=== PATIENT | female | born 1970 | race Caucasian/White ===

== ENCOUNTER → 2016-08-31 | Outpatient (CLI) | payer MEDICAID | LOC: OD 11:16 | PROVIDERS: ATTEND Family Medicine | DX: M54.2 Cervicalgia (principal) | CPT/HCPCS: 72050 ==

== ENCOUNTER 2018-01-30 13:39 | Emergency (ER) | payer MEDICAID ==
[2018-01-30 13:46] VITALS: BP 126/68
[2018-01-30] MEDS ORDERED: ACETAMINOPHEN 325 MG TABLET PO ONE (14:28)
--- NOTE | 2018-01-30 14:47 | ER Document Report ---
ED Hand/Wrist Injury - General Chief Complaint: Wrist Injury Stated Complaint: WRIST PAIN Time Seen by Provider: 01/30/18 14:28 Mode of Arrival: Ambulatory Information source: Patient Notes: 47-year-old female presents to ED for complaint of right hand pain for several months. She states she fell landing on her wrist. She states she never went and got it seen. She states she was doing good until about a week ago when her hand started becoming more painful. TRAVEL OUTSIDE OF THE [place] IN LAST 30 DAYS: No - HPI Injury to: Wrist Onset: Other - Several months Where: Home Timing: Waxing and waning Quality of pain: Throbbing Severity: Moderate Pain Level: 3 Context: Fall - Follow-up of that several months ago it was doing good until couple weeks ago when it started hurting again - Related Data Allergies/Adverse Reactions: NSAIDS (Non-Steroidal Anti-Inflamma Adverse Reaction (Verified 01/30/18 13:44) Past Medical History - General Information source: Patient - Social History Smoking Status: Former Smoker Cigarette use (# per day): No Chew tobacco use (# tins/day): No Smoking Education Provided: No Frequency of alcohol use: Occasional Drug Abuse: None 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 [employer] Lives with: Family Family History: Reviewed & Not Pertinent Patient has suicidal ideation: No Patient has homicidal ideation: No - Past Medical History Cardiac Medical History: Reports: None Pulmonary Medical History: Reports: None EENT Medical History: Reports: None Neurological Medical History: Reports: None Endocrine Medical History: Reports: None Renal/ Medical History: Reports: Hx Ovarian Cysts Malignancy Medical History: Reports: None GI Medical History: Reports: Hx Gastroesophageal Reflux Disease Musculoskeletal Medical History: Reports Hx Musculoskeletal Trauma Skin Medical History: Reports None Psychiatric Medical History: Reports: None Traumatic Medical History: Reports: None Infectious Medical History: Reports: None Surgical Hx: Negative Past Surgical History: Reports: None - Immunizations Hx Diphtheria, Pertussis, Tetanus Vaccination: Yes Review of Systems - Review of Systems Constitutional: No symptoms reported EENT: No symptoms reported Cardiovascular: No symptoms reported Respiratory: No symptoms reported Gastrointestinal: No symptoms reported Genitourinary: No symptoms reported Female Genitourinary: No symptoms reported Musculoskeletal: Other Skin: No symptoms reported Hematologic/Lymphatic: No symptoms reported Neurological/Psychological: No symptoms reported -: Yes All other systems reviewed and negative Physical Exam - Vital signs Vitals: Temp Pulse Resp BP Pulse Ox 98.8 F 83 18 126/68 H 98 01/30/18 13:44 01/30/18 13:44 01/30/18 13:44 01/30/18 13:44 01/30/18 13:44 Interpretation: Normal - General General appearance: Appears well, Alert - HEENT Head: Normocephalic, Atraumatic Eyes: Normal Pupils: PERRL - Respiratory Respiratory status: No respiratory distress Chest status: Nontender Breath sounds: Normal Chest palpation: Normal - Cardiovascular Rhythm: Regular Heart sounds: Normal auscultation Murmur: No - Abdominal Inspection: Normal Distension: No distension Bowel sounds: Normal Tenderness: Nontender Organomegaly: No organomegaly - Back Back: Normal, Nontender - Extremities General upper extremity: Normal color, Normal temperature General lower extremity: Normal inspection, Nontender, Normal color, Normal ROM , Normal temperature, Normal weight bearing. No: Alejandra's sign Wrist: Tender, Limited ROM - Due to pain. No: Abrasion, Axial load of thumb pain, Deformity, Dislocation, Ecchymosis, Instability, Laceration, Navicular tenderness - Neurological Neuro grossly intact: Yes Cognition: Normal Orientation: AAOx4 [place] Coma Scale Eye Opening: Spontaneous [place] Coma Scale Verbal: Oriented Lucia Coma Scale Motor: Obeys Commands Cross[place] Coma Scale Total: 15 Speech: Normal Motor strength normal: LUE, RUE, LLE, RLE Sensory: Normal - Psychological Associated symptoms: Normal affect, Normal mood - Skin Skin Temperature: Warm Skin Moisture: Dry Skin Color: Normal Course - Vital Signs Vital signs: Temp Pulse Resp BP Pulse Ox 98.8 F 83 18 126/68 H 98 01/30/18 13:44 01/30/18 13:44 01/30/18 13:44 01/30/18 13:44 01/30/18 13:44 - Diagnostic Test Radiology reviewed: Image reviewed, Reports reviewed Procedures - Immobilization Left Wrist Time completed: 16:20 Immobilizer type: Crutches Performed by: PCT Post-Proc Neuro Vasc Exam: Normal Alignment checked and good: Yes Discharge - Discharge Clinical Impression: Pain in right wrist Condition: Stable Disposition: HOME, SELF-CARE Additional Instructions: SPRAIN: Your injury is a sprain. A sprain results from stretching or tearing of the ligaments, usually from a twisting injury. The ligaments will require time and protection in order to heal properly. Many sprains are quite disabling and should be taken seriously. The usual initial treatment of sprains is cold packs, elevation, and rest of the injured area. Your physician has assessed the seriousness of your ligament injury, and has outlined a treatment plan. Understand that this treatment may change, depending on how you progress. If a re-examination was recommended, it is important that you follow up as instructed. Call the doctor any time if there is severe pain, numbness, or loss of function in the injured area. SPLINT PRECAUTIONS: A splint has been placed. This will protect the area while healing begins. Your problem does NOT normally require a cast. It MUST, however, be held still! Keep the splint on ALL THE TIME until instructed to remove it by the doctor. As you begin to use the area, be careful. You shouldn't do anything which causes discomfort -- you may disturb the injury even with the splint in place. After the initial period of rest and elevation, if splint does not prevent pain when you move, come back. You may require placement of a different splint , or a cast. If there is unexpected severe pain, or numbness, discoloration, or swelling beyond the splint, you should return at once. If you feel that the splint has broken or become loose, come back. ICE & ELEVATION: Apply ice packs frequently against the painful area. Many different schedules are recommended, such as "20 minutes on, 20 minutes off" or "one hour ice, two hours rest." If you need to work, you may need to go longer between ice treatments. You should plan to have the area ice packed AT LEAST one- fourth of the time. The ice should be applied over the wrap, tape, or splint, or over a layer of cloth -- not directly against the skin. Some ice bags have a built-in cloth and can be put directly on the skin. Your injured part should be elevated as much as possible over the next 48 hours. Try to keep the injury above the level of the heart. Avoid use of the injured area. Elevation and rest will decrease the swelling. USE OF ICJJ-JTE-PDFIURE IBUPROFEN: Ibuprofen (Advil, Nuprin, Medipren, Motrin IB) is a medication for fever and pain control. In addition, it has anti- inflammatory effects which may be beneficial, especially in the treatment of injuries. It's best to take ibuprofen with food. Persons with ulcer disease or allergy to aspirin should notify their physician of this before taking ibuprofen. Ibuprofen can be given every four to six hours, for a total of four doses daily. Age Pain or fever dose Antiinflammatory dose 6-8 yr 200 mg (1 tab) 200 mg (1 tab) 9-11 yr 200 mg (1 tab) 200-400 mg (1-2 tab) 11-14 yr 200-400 mg (1-2 tab) 400 mg (2 tab) 15-adult 400 mg (2 tab) 600 mg (3 tab) FOLLOW-UP CARE: If you have been referred to a physician for follow-up care, call the physician s office for an appointment as you were instructed or within the next two days. If you experience worsening or a significant change in your symptoms, notify the physician immediately or return to the Emergency Department at any time for re-evaluation. Forms: Elevated Blood Pressure Referrals: LEWIS MCGINNIS DO [Primary Care Provider] - Follow up as needed REX LATIF MD [ACTIVE STAFF] - Follow up as needed
--- NOTE | 2018-01-30 14:58 | RADIOLOGY REPORT (SQ) ---
EXAM DESCRIPTION: HAND RIGHT 3 VIEWS COMPLETED DATE/TIME: 01/30/2018 2:50 pm REASON FOR STUDY: pain COMPARISON: None. EXAM PARAMETERS: NUMBER OF VIEWS: Three views. TECHNIQUE: AP, lateral and oblique radiographic images acquired of the right hand. LIMITATIONS: None. FINDINGS: MINERALIZATION: Normal. BONES: No acute fracture or dislocation. No worrisome bone lesions. JOINTS: No effusions. SOFT TISSUES: No soft tissue swelling. No foreign body. OTHER: No other significant finding. IMPRESSION: NEGATIVE STUDY OF THE RIGHT HAND. NO RADIOGRAPHIC EVIDENCE OF ACUTE INJURY. TECHNICAL DOCUMENTATION: JOB ID: [id number] [employer]- All Rights Reserved Reading location - IP/workstation name: [email or web address]
--- NOTE | 2018-01-30 14:59 | RADIOLOGY REPORT (SQ) ---
EXAM DESCRIPTION: WRIST RIGHT 3 VIEWS COMPLETED DATE/TIME: 01/30/2018 2:50 pm REASON FOR STUDY: pain COMPARISON: None. NUMBER OF VIEWS: Three views. TECHNIQUE: AP, lateral, and oblique radiographic images acquired of the right wrist. LIMITATIONS: None. FINDINGS: MINERALIZATION: Normal. BONES: No acute fracture or dislocation. No worrisome bone lesions. Normal alignment. SOFT TISSUES: Mild soft tissue swelling overlying the dorsum of the wrist. No subcutaneous gas. No radiopaque foreign body. OTHER: No other significant finding. IMPRESSION: Mild soft tissue swelling overlying the dorsum of the wrist. No acute fracture or dislo cation. TECHNICAL DOCUMENTATION: JOB ID: [id number] [employer]- All Rights Reserved Reading location - IP/workstation name: [email or web address]
== END 2018-01-30 16:26 | disposition home or self-care (01) ==
LOC: ER 13:39 → EEVIPCON 13:39 → ER 16:26
DX: M25.531 Pain in right wrist (principal)
CPT/HCPCS: 99283; 73130; 73110; L3908

== ENCOUNTER 2018-11-06 12:12 | Emergency (ER) | payer MEDICAID ==
--- NOTE | 2018-11-06 12:54 | ER Document Report ---
ED Medical Screen (RME) - General Chief Complaint: Vaginal Bleeding Stated Complaint: VAGINAL BLEEDING Time Seen by Provider: 11/06/18 12:50 Primary Care Provider: LEWIS MCGINNIS DO [Primary Care Provider] - Follow up as needed TRAVEL OUTSIDE OF THE [place] IN LAST 30 DAYS: No - HPI Notes: 11/06/18 12:53 Patient is a 48-year-old female with no significant past medical history aside from sciatic pain who presents complaining of heavy vaginal bleeding that began a day and a half ago. Patient states that she is going through a pad per hour. Patient states that she is not currently gone through any menopause and has been having monthly cycles otherwise. She is eating and drinking without difficulty. She is urinating normally. She is having normal bowel movements. No other vaginal odor or discharge. She has no concern of STD or STI. No associated pain. Denies BRIDGES, fever, neck pain, URI, CP, SOB, Abd pain, or rash. I have treated and performed a rapid initial assessment of this patient. A comprehensive ED assessment and evaluation of the patient, analysis of test results and completion of medical decision making process will be conducted by additional ED providers. PHYSICAL EXAMINATION: GENERAL: Well-appearing, well-nourished and in no acute distress. A&Ox4. Answers questions appropriately. LUNGS: Breath sounds clear to auscultation bilaterally and equal. No wheezes rales or rhonchi. HEART: Regular rate and rhythm without murmurs, rubs, gallops. - Related Data Allergies/Adverse Reactions: NSAIDS (Non-Steroidal Anti-Inflamma Adverse Reaction (Verified 11/06/18 12:13) Past Medical History Renal/ Medical History: Reports: Hx Ovarian Cysts. Denies: Hx Peritoneal Dialysis GI Medical History: Reports: Hx Gastroesophageal Reflux Disease Musculoskeltal Medical History: Reports Hx Musculoskeletal Trauma - Immunizations Hx Diphtheria, Pertussis, Tetanus Vaccination: Yes Physical Exam - Vital signs Vitals: Temp Pulse Resp BP Pulse Ox 98.4 F 82 18 142/88 H 100 11/06/18 12:21 11/06/18 12:21 11/06/18 12:21 11/06/18 12:21 11/06/18 12:21 Course - Vital Signs Vital signs: Temp Pulse Resp BP Pulse Ox 98.4 F 82 18 142/88 H 100 11/06/18 12:21 11/06/18 12:21 11/06/18 12:21 11/06/18 12:21 11/06/18 12:21 Doctor's Discharge - Discharge Referrals: LEWIS MCGINNIS DO [Primary Care Provider] - Follow up as needed
[2018-11-06 13:58] LABS: ABSOLUTE BASOPHILS # (AUTO) 0.1 10^3/uL (0.0-0.2); ABSOLUTE EOSINOPHILS # (AUTO) 0.1 10^3/uL (0.0-0.6); ABSOLUTE LYMPHOCYTES (AUTO) 1.5 10^3/uL (0.5-4.7); ABSOLUTE MONOCYTES (AUTO) 0.7 10^3/uL (0.1-1.4); ABSOLUTE NEUT (AUTO) 7.8 10^3/uL (1.7-8.2); BASOPHILS % (AUTO) 0.7 % (0-2); EOSINOPHILS % (AUTO) 1.2 % (0-6); HEMATOCRIT 27.6 % (36.0-47.0); LYMPHOCYTES % (AUTO) 14.9 % (13-45); MEAN CORPUSCULAR HEMOGLOBIN 17.4 pg (27.0-33.4); MEAN CORPUSCULAR HGB CONC 28.9 g/dL (32.0-36.0); MONOCYTES % (AUTO) 6.7 % (3-13); PLATELET COUNT 257 10^3/uL (150-450); RED BLOOD COUNT 4.61 10^6/uL (3.72-5.28); RED CELL DISTRIBUTION WIDTH 20.3 % (11.5-14.0); SEGMENTED NEUTROPHILS % (AUTO) 76.5 % (42-78); TOTAL CELLS COUNTED % (AUTO) 100 %; WHITE BLOOD COUNT 10.1 10^3/uL (4.0-10.5)
[2018-11-06 14:15] LABS: MEAN CORPUSCULAR VOLUME 60 fl (80-97)
[2018-11-06 14:23] LABS: ANISOCYTOSIS 2+; HYPOCHROMASIA 3+; OVALOCYTES 1+; PLATELET COMMENT ADEQUATE; POIKILOCYTOSIS 1+; TEAR DROP CELLS SLIGHT
[2018-11-06] MEDS ORDERED: NORMAL SALINE 1000 ML 1,000 ML IV ONE (14:28)
--- NOTE | 2018-11-06 14:38 | RADIOLOGY REPORT (SQ) ---
EXAM DESCRIPTION: U/S NON OB PEL TV W/DOPPLER COMPLETED DATE/TIME: 11/06/2018 2:19 pm REASON FOR STUDY: heavy bleeding COMPARISON: 04/22/2007 TECHNIQUE: Dynamic and static grayscale images acquired of the pelvis via transvaginal approach and recorded on PACS. Additional selected color Doppler and spectral images recorded. LIMITATIONS: Body habitus. FINDINGS: UTERUS: There is a ill-defined mass of the posterior uterine body, likely with a large sub mucosal component, measuring 6.1 cm. ENDOMETRIAL STRIPE: No focal or generalized thickening. No masses. CERVIX: No nabothian cysts. RIGHT OVARY AND DOPPLER: Ovary not visualized. LEFT OVARY AND DOPPLER: Ovary not visualized. FREE FLUID: None noted. OTHER: No other significant finding. MEASUREMENTS: UTERUS: 11.5 x 7.9 x 8.3 cm ENDOMETRIAL STRIPE: 2 mm RIGHT OVARY: Not visualized. LEFT OVARY: Not visualized. IMPRESSION: 1. There is an ill-defined mass of the posterior uterine body, likely a fibroid with a l arge submucosal component, measuring 6.1 cm. No ultrasound abnormality of the endometrial stripe pro per. 2. The bilateral ovaries are nonvisualized. TECHNICAL DOCUMENTATION: JOB ID: [id number] [employer]- All Rights Reserved Rev Reading location - IP/workstation name: [email or web address]
--- NOTE | 2018-11-06 14:39 | ER Document Report ---
ED GI/ - General Chief Complaint: Vaginal Bleeding Stated Complaint: VAGINAL BLEEDING Time Seen by Provider: 11/06/18 12:50 Primary Care Provider: LEWIS MCGINNIS DO [Primary Care Provider] - Follow up as needed Mode of Arrival: Ambulatory Information source: Patient TRAVEL OUTSIDE OF THE [place] IN LAST 30 DAYS: No - HPI Patient complains to provider of: Vaginal bleeding Notes: 11/06/18 14:37 Patient here with complaints of vaginal bleeding. The patient states that she started taking the medication for sciatica few days ago and she thinks that this is thrown her cycle off she started having extremely heavy bleeding 2 days ago. States it seems to have improved somewhat today. She denies any pain. No fever. No chest pain or shortness of breath. No syncope. She states she does have a history of anemia, but she is not sure what her normal hemoglobin is. She does have a history of fibroids in her uterus. She denies any vaginal discharge. No fever. She denies any concerns for sexually transmitted infections. She denies any unilateral numbness, tingling, weakness. No rash. No other complaints at this time. She states that yesterday and the day before she was changing her pad every 2-3 hours, today it seems to be better. 11/06/18 14:38 - Related Data Allergies/Adverse Reactions: NSAIDS (Non-Steroidal Anti-Inflamma Adverse Reaction (Verified 11/06/18 12:13) Past Medical History - Social History Smoking Status: Never Smoker Chew tobacco use (# tins/day): No Frequency of alcohol use: None Drug Abuse: None Family History: Reviewed & Not Pertinent Patient has suicidal ideation: No Patient has homicidal ideation: No Renal/ Medical History: Reports: Hx Ovarian Cysts. Denies: Hx Peritoneal Dialysis GI Medical History: Reports: Hx Gastroesophageal Reflux Disease Musculoskeletal Medical History: Reports Hx Musculoskeletal Trauma Past Surgical History: Reports: Hx Gynecologic Surgery - Immunizations Hx Diphtheria, Pertussis, Tetanus Vaccination: Yes Review of Systems - Review of Systems -: Yes All other systems reviewed and negative Physical Exam - Vital signs Vitals: Temp Pulse Resp BP Pulse Ox 98.4 F 82 18 142/88 H 100 11/06/18 12:21 11/06/18 12:21 11/06/18 12:21 11/06/18 12:21 11/06/18 12:21 - Notes Notes: GENERAL: alert, cooperative, nontoxic, no distress. HEAD: normocephalic, atraumatic EYES: conjunctiva pink without discharge, no external redness or swelling. EARS: no external swelling, no external redness NOSE: atraumatic, no external swelling MOUTH/THROAT: mucous membranes moist and pink, posterior pharynx without erythema, swelling, exudate. No trismus or drooling. NECK: soft, supple, full range of motion, no meningismus. CHEST: no distress, lungs clear and equal throughout. No wheezing, rales, rhonchi. CARDIAC: regular rate and rhythm, no murmur, normal capillary refill, normal pulses. No peripheral edema noted. ABDOMEN: Soft, nontender. No rebound tenderness or guarding. No obvious mass. Obese abdomen. BACK: full range of motion, no CVA tenderness. EXTREMITIES: full range of motion of all extremities. No redness, no swelling. NEURO: alert and oriented x 3, no focal deficits, full range of motion of all extremities. PYSCH: appropriate mood, affect. Patient is cooperative. SKIN: pink, warm, dry, no rash. : Female staff mine warfare officer at the bedside. No external lesions. Cervix closed. Small amount of blood within the vaginal vault. No cervical motion tenderness, no adnexal tenderness or masses. Course - Re-evaluation Re-evalutation: 11/06/18 16:13 Patient is nontoxic-appearing with stable vitals. Patient here with complaints of heavy vaginal bleeding for the last few days. No pain. No syncope. No chest pain or shortness of breath. On exam she has no tenderness. She is a little bit of blood in her vaginal vault. She states that her bleeding does se em to have improved. Hemoglobin is 8, the patient states that she is normally anemic but cannot remember exactly what her hemoglobin typically is. She does not have any symptoms of significant anemia. Ultrasound shows a large uterine fibroid which she has a history of. Urinalysis shows signs of UTI. Patient will be discharged home with a prescription for Macrobid and instructions to follow-up with her [facility] at the next available appointment for further evaluation. Follow-up sooner for worsening bleeding, high fever, severe pain, persistent vomiting, syncope, or for any further concerns. The patient's emergency department workup and current diagnosis were explained to the patient and or family. Follow-up instructions were provided. Medications if prescribed were discussed. Instructions for when to return to the emergency department including specific worrisome symptoms were discussed with the patient and/or family. - Vital Signs Vital signs: Temp Pulse Resp BP Pulse Ox 98.4 F 82 18 142/88 H 100 11/06/18 12:21 11/06/18 12:21 11/06/18 12:21 11/06/18 12:21 11/06/18 12:21 - Laboratory Result Diagrams: 11/06/18 13:07 Laboratory results interpreted by me: 11/06/18 11/06/18 13:07 15:40 Hgb 8.0 L Hct 27.6 L MCV 60 L MCH 17.4 L MCHC 28.9 L RDW 20.3 H Urine Protein 100 H Urine Blood LARGE H Ur Leukocyte Esterase MODERATE H - Diagnostic Test Radiology reviewed: Image reviewed, Reports reviewed - Large uterine fibroid Discharge - Discharge Clinical Impression: Uterine fibroid Qualifiers: Uterine leiomyoma location: unspecified location Qualified Code(s): D25.9 - Leiomyoma of uterus, unspecified Anemia Qualifiers: Anemia type: unspecified type Qualified Code(s): D64.9 - Anemia, unspecified UTI (urinary tract infection) Qualifiers: Urinary tract infection type: acute cystitis Hematuria presence: with hematuria Qualified Code(s): N30.01 - Acute cystitis with hematuria Condition: Stable Disposition: HOME, SELF-CARE Instructions: Urinary Tract Infection ([facility]), Nitrofurantoin ([facility]), Vaginal Bleeding ([facility]) Additional Instructions: Take medication as prescribed. Follow-up with your [facility] [facility] at the next available appointment. Have your hemoglobin rechecked, today it was 8. Follow-up for worsening bleeding, severe pain, persistent vomiting, passing out, chest pain or shortness of breath, or for any further concerns. Prescriptions: Nitrofurantoin/Nitrofuran Mac [Macrobid 100 mg Capsule] 1 tab PO BID #20 capsule Forms: Elevated Blood Pressure, Smoking Cessation Education Referrals: LEWIS MCGINNIS DO [Primary Care Provider] - Follow up as needed
[2018-11-06 15:57] LABS: APPEARANCE,URINE CLOUDY; BILIRUBIN,URINE NEGATIVE (NEGATIVE); GLUCOSE, URINE NEGATIVE (NEGATIVE); KETONES,URINE NEGATIVE (NEGATIVE); LEUKOCYTE ESTERASE,URINE MODERATE (NEGATIVE); NITRITE,URINE NEGATIVE (NEGATIVE); PROTEIN,URINE 100 mg/dL (NEGATIVE); URINE SPECIFIC GRAVITY 1.023; UROBILINOGEN,URINE NEGATIVE mg/dL (<2.0)
[2018-11-06 15:58] LABS: COLOR,URINE RED
[2018-11-06 16:30] VITALS: BP 145/79
[2018-11-08 11:49] LABS: PATH REVIEW PATHOLOGIST REVIEWED
== END 2018-11-06 16:31 | disposition home or self-care (01) ==
LOC: ER 12:12
DX: D25.9 Leiomyoma of uterus, unspecified (principal); D64.9 Anemia, unspecified; N30.01 Acute cystitis with hematuria
CPT/HCPCS: 99284; 96360; 36415; 85025; 81025; 81001; 76830; 93976; J7030

== ENCOUNTER → 2020-03-01 | Outpatient (CLI) | payer MEDICAID ==
--- NOTE | 2020-03-01 17:36 | RADIOLOGY REPORT (SQ) ---
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 EXAM PARAMETERS: NUMBER OF VIEWS: two views TECHNIQUE: Digital Frontal and Lateral radiographic views of the chest acquired. RADIATION DOSE: NA LIMITATIONS: none FINDINGS: LUNGS AND PLEURA: No opacities, masses or pneumothorax. No pleural effusion. MEDIASTINUM AND HILAR STRUCTURES: No masses or contour abnormalities. HEART AND VASCULAR STRUCTURES: Heart normal size. No evidence for failure. BONES: No acute findings. HARDWARE: None in the chest. OTHER: No other significant finding. IMPRESSION: NO SIGNIFICANT RADIOGRAPHIC FINDING IN THE CHEST. TECHNICAL DOCUMENTATION: JOB ID: [id number] 2010 [employer]- All Rights Reserved Reading location - IP/workstation name: [email or web address]
--- NOTE | 2020-03-01 17:37 | RADIOLOGY REPORT (SQ) ---
EXAM DESCRIPTION: LUMBAR SPINE COMPLETE IMAGES COMPLETED DATE/TIME: 03/01/2020 5:17 pm REASON FOR STUDY: CHRONIC LEFT SIDED LOW BACK PAIN WITH LEFT SIDED SCIATICA M54.42 LUMBAGO WITH SCI ATICA, LEFT SIDE COMPARISON: None. NUMBER OF VIEWS: Five views including obliques. TECHNIQUE: AP, lateral, oblique, and sacral radiographic images acquired of the lumbar spine. LIMITATIONS: None. FINDINGS: MINERALIZATION: Normal. SEGMENTATION: Normal. No transitional anatomy. ALIGNMENT: Mild anterolisthesis of L4 on L5. VERTEBRAE: Maintained height. No fracture or worrisome bone lesion. DISCS: Mild narrowing of the L4-5 disc space. POSTERIOR ELEMENTS: No pars defects. hypertrophic facet changes from L4-S1. HARDWARE: None in the spine. PARASPINAL SOFT TISSUES: Normal. PELVIS: Intact as visualized. No fractures or worrisome bone lesions. SI joints intact. OTHER: No other significant finding. IMPRESSION: Mild anterolisthesis of L4 on L5. Degenerative disc disease. Facet arthropathy. TECHNICAL DOCUMENTATION: JOB ID: [id number] 2010 [employer]- All Rights Reserved Reading location - IP/workstation name: [email or web address]
== END ==
LOC: OD 16:49
PROVIDERS: ATTEND Nurse Practitioner Family
DX: M51.16 Intervertebral disc disorders with radiculopathy, lumbar region (principal)
CPT/HCPCS: 71046; 72110

== ENCOUNTER → 2020-03-01 | Outpatient (CLI) | payer MEDICAID ==
--- NOTE | 2020-03-01 21:04 | EKG REPORT ---
SEVERITY:- OTHERWISE NORMAL ECG - SINUS RHYTHM BORDERLINE LEFT AXIS DEVIATION : Confirmed by: Noreen Solorzano 01-Mar-2020 21:03:56
== END ==
LOC: OD 16:44
PROVIDERS: ATTEND Nurse Practitioner Family
DX: R00.2 Palpitations (principal); R05 Cough
CPT/HCPCS: 93005; 93010

== ENCOUNTER 2020-06-15 10:42 | Emergency (ER) | payer MEDICAID ==
[2020-06-15] MEDS ORDERED: ACETAMINOPHEN 325 MG TABLET PO ONE (12:42)
--- NOTE | 2020-06-15 12:43 | ER Document Report ---
ED Medical Screen (RME) - General Chief Complaint: Flank Pain Stated Complaint: FLANK PAIN Time Seen by Provider: 06/15/20 12:39 Primary Care Provider: CARMEL SOTO NP [Primary Care Provider] - Follow up as needed Notes: Patient presents complaining of right flank pain for the past 2 weeks. Patient states initially she had bilateral flank pain but she took a leftover prescription of antibiotics and now she only has right flank tenderness at this time. Patient does report some mild diarrhea. Patient denies any fever. Patient only reports a history of GERD. I have greeted and performed a rapid initial assessment of this patient. A comprehensive ED assessment and evaluation of the patient, analysis of test results and completion of the medical decision making process will be conducted by additional ED providers. TRAVEL OUTSIDE OF THE [place] IN LAST 30 DAYS: No - Related Data Allergies/Adverse Reactions: NSAIDS (Non-Steroidal Anti-Inflamma Adverse Reaction (Verified 11/06/18 12:13) Past Medical History Renal/ Medical History: Reports: Hx Ovarian Cysts. Denies: Hx Peritoneal Dialysis GI Medical History: Reports: Hx Gastroesophageal Reflux Disease Musculoskeltal Medical History: Reports Hx Musculoskeletal Trauma Past Surgical History: Reports: Hx Gynecologic Surgery - Immunizations Hx Diphtheria, Pertussis, Tetanus Vaccination: Yes Physical Exam - Vital signs Vitals: Temp Pulse Resp BP Pulse Ox 98.1 F 82 18 128/54 H 98 06/15/20 10:48 06/15/20 10:48 06/15/20 10:48 06/15/20 10:48 06/15/20 10:48 - Back Back: CVA tenderness - Right Course - Vital Signs Vital signs: Temp Pulse Resp BP Pulse Ox 98.1 F 82 18 128/54 H 98 06/15/20 10:48 06/15/20 10:48 06/15/20 10:48 06/15/20 10:48 06/15/20 10:48 Doctor's Discharge - Discharge Referrals: CARMEL SOTO NP [Primary Care Provider] - Follow up as needed
[2020-06-15 13:36] LABS: ABSOLUTE BASOPHILS # (AUTO) 0.1 10^3/uL (0.0-0.2); ABSOLUTE EOSINOPHILS # (AUTO) 0.2 10^3/uL (0.0-0.6); ABSOLUTE LYMPHOCYTES (AUTO) 2.1 10^3/uL (0.5-4.7); ABSOLUTE MONOCYTES (AUTO) 0.6 10^3/uL (0.1-1.4); ABSOLUTE NEUT (AUTO) 6.3 10^3/uL (1.7-8.2); BASOPHILS % (AUTO) 1.1 % (0-2); HEMATOCRIT 32.9 % (36.0-47.0); HEMOGLOBIN 9.9 g/dL (12.0-15.5); LYMPHOCYTES % (AUTO) 22.3 % (13-45); MEAN CORPUSCULAR HEMOGLOBIN 19.8 pg (27.0-33.4); MEAN CORPUSCULAR HGB CONC 30.2 g/dL (32.0-36.0); MEAN CORPUSCULAR VOLUME 65 fl (80-97); MONOCYTES % (AUTO) 6.8 % (3-13); PLATELET COUNT 240 10^3/uL (150-450); RED BLOOD COUNT 5.03 10^6/uL (3.72-5.28); RED CELL DISTRIBUTION WIDTH 19.2 % (11.5-14.0); SEGMENTED NEUTROPHILS % (AUTO) 67.8 % (42-78); TOTAL CELLS COUNTED % (AUTO) 100 %; WHITE BLOOD COUNT 9.2 10^3/uL (4.0-10.5)
[2020-06-15 13:38] LABS: APPEARANCE,URINE CLOUDY; BILIRUBIN,URINE SMALL (NEGATIVE); COLOR,URINE YELLOW; GLUCOSE, URINE NEGATIVE (NEGATIVE); KETONES,URINE NEGATIVE (NEGATIVE); LEUKOCYTE ESTERASE,URINE LARGE (NEGATIVE); NITRITE,URINE NEGATIVE (NEGATIVE); PROTEIN,URINE 100 mg/dL (NEGATIVE); URINE SPECIFIC GRAVITY 1.032; UROBILINOGEN,URINE NEGATIVE mg/dL (<2.0)
[2020-06-15 13:57] LABS: ALKALINE PHOSPHATASE 136 U/L (38-126); ASPARTATE AMINO TRANSFERASE 69 U/L (14-36); BILIRUBIN,DIRECT 0.3 mg/dL (0.0-0.4); BILIRUBIN,TOTAL 0.5 mg/dL (0.2-1.3); BLOOD UREA NITROGEN 17 mg/dL (7-20); CALCIUM 9.4 mg/dL (8.4-10.2); CARBON DIOXIDE 32 mmol/L (22-30); CHLORIDE 104 mmol/L (98-107); GLUCOSE 96 mg/dL (75-110); POTASSIUM 4.7 mmol/L (3.6-5.0); TOTAL PROTEIN 7.1 g/dL (6.3-8.2)
[2020-06-15 13:59] LABS: ANION GAP 4 (5-19)
--- NOTE | 2020-06-15 16:45 | ER Document Report ---
ED GI/ - General Chief Complaint: Low Back Pain Stated Complaint: FLANK PAIN Time Seen by Provider: 06/15/20 12:39 Primary Care Provider: CARMEL WORTHY NP [NURSE PRACTITIONER] - Follow up as needed Mode of Arrival: Ambulatory Information source: Patient Notes: 06/15/20 14:24 - [facility] [id number] : 1970 Patient Age: 50 pt reports she fell a couple of weeks ago out of the shower. states she was seen by chiropractor. states increase in pain. c/o of pain to the right lower back. denies urinary symptoms. denies n/v. states intermittent diarrhea. states she has had for a long time depending on what she eats. states some nausea with menses. pt is alert and oriented. resp are even and unlabored. no distress noted at this time. reports she does have sciatic. states she has been given polo pentin. ED Medical Screen ([facility] chart) - General Chief Complaint: Flank Pain Stated Complaint: FLANK PAIN Time Seen by Provider: 06/15/20 12:39 Primary Care Provider: CARMEL WORTHY NP [Primary Care Provider] - Follow up as needed Notes: Patient presents complaining of right flank pain for the past 2 weeks. Patient states initially she had bilateral flank pain but she took a leftover prescription of antibiotics and now she only has right flank tenderness at this time. Patient does report some mild diarrhea. Patient denies any fever. Patient only reports a history of GERD. MY NOTES 50-year-old white female arrives with chief complaint of falling out of shower a couple weeks ago and was seen by chiropractor. I see from old electronic records that she has an feb 2020 Dr. Worthy saw this patient for lumbago with left-sided sciatica and April 2020 Zahraa Jay saw this patient for spondylolisthesis. Patient reports increase in pain on the right side and denies any urinary symptoms. She does say she has some occasional diarrhea. She admits to some nausea occasionally. She has been taking gabapentin for her symptoms. Today she was seen by [facility] as per above notes. The labs that were taken reveal a 9.9 hemoglobin and a 65 MCV. I see in October 2018 she had vaginal bleeding history. No prior history of pancreatitis on medical records. Urine test analysis today reports large UTI. Patient works at [place] [employer] [place] and is supposed to work tomorrow. I will write her for 3 days off work to encourage fluids and medications. She also reports she fell out of the shower bath 2 weeks ago landing on her right CVA area. She was x-rayed by her PMD and these were negative. She has had a history of kidney stones. TRAVEL OUTSIDE OF THE [place] IN LAST 30 DAYS: No - HPI Patient complains to provider of: Flank pain Onset: Last week Timing/Duration: Persistent, Worse. denies: Intermittent, Better, Gone Quality of pain: Achy. denies: Burning, Cramping, Fullness, Pressure, Sharp, Stabbing, Throbbing Severity at maximum: Moderate Severity in ED: Moderate Pain Level: 2 Context: Recent trauma. denies: Bad food, Lifting, Location: Right flank - Related Data Allergies/Adverse Reactions: NSAIDS (Non-Steroidal Anti-Inflamma Adverse Reaction (Verified 06/15/20 14:23) Home Medications: gabapentin. methocarbinol. gerd. zyrtec Past Medical History - General Information source: Patient - Social History Smoking Status: Never Smoker Cigarette use (# per day): No Chew tobacco use (# tins/day): No Smoking Education Provided: No Frequency of alcohol use: None Drug Abuse: Marijuana Family History: Reviewed & Not Pertinent Patient has suicidal ideation: No Patient has homicidal ideation: No Renal/ Medical History: Reports: Hx Ovarian Cysts. Denies: Hx Peritoneal Dialysis GI Medical History: Reports: Hx Gastroesophageal Reflux Disease Musculoskeletal Medical History: Reports Hx Musculoskeletal Trauma Past Surgical History: Reports: Hx Gynecologic Surgery - Immunizations Hx Diphtheria, Pertussis, Tetanus Vaccination: Yes Review of Systems - Review of Systems Constitutional: See HPI EENT: No symptoms reported Cardiovascular: No symptoms reported Respiratory: No symptoms reported Gastrointestinal: No symptoms reported Genitourinary: No symptoms reported Female Genitourinary: No symptoms reported Musculoskeletal: See HPI, Back pain - Right CVA pain on range of motion percussion Skin: No symptoms reported Hematologic/Lymphatic: No symptoms reported Neurological/Psychological: No symptoms reported Physical Exam - Vital signs Vitals: Temp Pulse Resp BP Pulse Ox 98.1 F 82 18 128/54 H 98 06/15/20 10:48 06/15/20 10:48 06/15/20 10:48 06/15/20 10:48 06/15/20 10:48 Interpretation: Normal - General General appearance: Appears well, Alert - HEENT Head: Normocephalic, Atraumatic Eyes: Normal Pupils: PERRL - Respiratory Respiratory status: No respiratory distress Chest status: Nontender Breath sounds: Normal Chest palpation: Normal - Cardiovascular Rhythm: Regular Heart sounds: Normal auscultation Murmur: No - Abdominal Inspection: Normal Distension: No distension Bowel sounds: Normal Tenderness: Nontender Organomegaly: No organomegaly - Rectal Hemorrhoids: Other - Deferred - Genitourinary Bimanuel exam: Other - Deferred - Back Back: Normal, Tender, CVA tenderness - Right CVA tenderness on percussion range of motion - Extremities General upper extremity: Normal inspection, Nontender, Normal color, Normal ROM, Normal temperature General lower extremity: Normal inspection, Nontender, Normal color, Normal ROM, Normal temperature, Normal weight bearing. No: Alejandra's sign - Neurological Neuro grossly intact: Yes Cognition: Normal Orientation: AAOx4 Schlater Coma Scale Eye Opening: Spontaneous Lucia Coma Scale Verbal: Oriented Schlater Coma Scale Motor: Obeys Commands Lucia Coma Scale Total: 15 Speech: Normal Motor strength normal: LUE, RUE, LLE, RLE Sensory: Normal - Psychological Associated symptoms: Normal affect, Normal mood - Skin Skin Temperature: Warm Skin Moisture: Dry Skin Color: Normal Course - Vital Signs Vital signs: Temp Pulse Resp BP Pulse Ox 98.2 F 72 16 144/69 H 100 06/15/20 14:22 06/15/20 14:22 06/15/20 14:22 06/15/20 14:22 06/15/20 14:22 - Laboratory Results Result Diagrams: 06/15/20 13:06 06/15/20 13:06 Laboratory Results Interpreted: 06/15/20 06/15/20 06/15/20 13:06 13:06 13:06 Hgb 9.9 L Hct 32.9 L MCV 65 L MCH 19.8 L MCHC 30.2 L RDW 19.2 H Carbon Dioxide 32 H Anion Gap 4 L AST 69 H ALT 59 H Alkaline Phosphatase 136 H Lipase 597.7 H Urine Protein 100 H Urine Bilirubin SMALL H Ur Leukocyte Esterase LARGE H Critical Laboratory Results Reviewed: Yes Attending or Supervising Physician who Reviewed Labs: ROSALVA MURO JR - Radiology Results Critical Radiology Results Reviewed: No Critical Results Attending or Supervising Physician who Reviewed Radiology: Jay wolf Discharge - Discharge Clinical Impression: Hemoglobin low Anemia Qualifiers: Anemia type: unspecified type Qualified Code(s): D64.9 - Anemia, unspecified Pancreatitis Qualifiers: Chronicity: acute Pancreatitis type: unspecified pancreatitis type Acute pancreatitis complication: unspecified Qualified Code(s): K85.90 - Acute pancreatitis without necrosis or infection, unspecified UTI (urinary tract infection) Qualifiers: Urinary tract infection type: acute cystitis Hematuria presence: without hematuria Qualified Code(s): N30.00 - Acute cystitis without hematuria Condition: Stable Disposition: HOME, SELF-CARE Instructions: Urinary Tract Infection ([facility]) Additional Instructions: Follow-up with personal doctor this week off work as directed. You also have blood test that is indicative of mild pancreatitis. Sometimes this indicates injury from drinking and sometimes from stones Prescriptions: Tramadol HCl [Ultram 50 mg Tablet] 50 mg PO Q4HP PRN #12 tab PRN Reason: Ciprofloxacin HCl [Cipro 500 mg Tablet] 500 mg PO BID #20 tablet Forms: Return to Work Referrals: CARMEL WORTHY, [employer] MACHINE SET UP OPERATOR [NURSE PRACTITIONER] - Follow up as needed
[2020-06-15] MEDS ORDERED: TRAMADOL HCL 50 MG TABLET PO ONE (17:09)
[2020-06-15] MEDS ORDERED: CEFTRIAXONE INJ 1000 MG VIAL IM ONE (17:09)
[2020-06-15] MEDS ORDERED: LIDOCAINE 2% INJ (20 MG/ML) 20 ML MDV ONE (17:17)
[2020-06-15] MEDS ORDERED: LIDOCAINE 1% INJ-PF (10 MG/ML) 30 ML SDV ONE (17:18)
[2020-06-15 17:54] VITALS: BP 155/97
== END 2020-06-15 17:54 | disposition home or self-care (01) ==
LOC: ER 10:42
DX: N30.00 Acute cystitis without hematuria (principal); D64.9 Anemia, unspecified; K85.90 Acute pancreatitis without necrosis or infection, unspecified; M54.5 Low back pain; Z88.8 Allergy status to other drugs, medicaments and biological substances
CPT/HCPCS: 99284; 96372; 36415; 87086; 83690; 84703; 85025; 80053; 81001; J3490 ×2; J0696

== ENCOUNTER → 2020-06-19 | Outpatient (CLI) | payer MEDICAID ==
[2020-06-19 13:32] LABS: APPEARANCE,URINE CLOUDY; BILIRUBIN,URINE NEGATIVE (NEGATIVE); COLOR,URINE YELLOW; GLUCOSE, URINE NEGATIVE (NEGATIVE); KETONES,URINE NEGATIVE (NEGATIVE); LEUKOCYTE ESTERASE,URINE LARGE (NEGATIVE); NITRITE,URINE NEGATIVE (NEGATIVE); PROTEIN,URINE NEGATIVE (NEGATIVE); URINE SPECIFIC GRAVITY 1.018; UROBILINOGEN,URINE NEGATIVE mg/dL (<2.0)
--- NOTE | 2020-06-19 14:06 | RADIOLOGY REPORT (SQ) ---
EXAM DESCRIPTION: KUB/ABDOMEN (SINGLE VIEW) IMAGES COMPLETED DATE/TIME: 06/19/2020 12:48 pm REASON FOR STUDY: (R10.9)UNSPECIFIED ABDOMINAL PAIN R10.9 UNSPECIFIED ABDOMINAL PAIN COMPARISON: 2014 NUMBER OF VIEWS: One view. TECHNIQUE: Supine radiographic image of the abdomen acquired. LIMITATIONS: None. FINDINGS: BOWEL GAS PATTERN: Normal bowel gas pattern. No dilated loops. CALCIFICATIONS: No suspicious calcifications. SOFT TISSUES: No gross mass or suggestion of organomegaly. HARDWARE: None in the abdomen. BONES: Degenerative joint disease in the hips, left more than right. OTHER: No other significant finding. IMPRESSION: Nonspecific abdomen. 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 TECHNICAL DOCUMENTATION: JOB ID: [id number] 2010 [employer]- All Rights Reserved Reading location - IP/workstation name: [email or web address]
== END ==
LOC: RAD 12:31
PROVIDERS: ATTEND Nurse Practitioner Family
DX: R10.9 Unspecified abdominal pain (principal)
CPT/HCPCS: 74018; 81001; 87086

== ENCOUNTER 2020-07-02 15:30 | Emergency (ER) | payer MEDICAID ==
[2020-07-02] MEDS ORDERED: NORMAL SALINE 1000 ML 1,000 ML IV ONE (16:10)
[2020-07-02] MEDS ORDERED: ONDANSETRON 4 MG TAB.RAPDIS PO ONE (16:13)
--- NOTE | 2020-07-02 16:13 | ER Document Report ---
ED Medical Screen (RME) - General Stated Complaint: FLANK PAIN, ABDOMINAL PAIN Time Seen by Provider: 07/02/20 15:53 Primary Care Provider: LEWIS MCGINNIS DO [Primary Care Provider] - Follow up as needed TRAVEL OUTSIDE OF THE [place] IN LAST 30 DAYS: No - HPI Notes: 07/02/20 16:10 50 year old female presents to ER for complaints of persistent right flank pain for the last few weeks that has returned after finishing her last dose of ciprofloxacin 500mg BID x 10d abx course. Reports she has pain that is 5 out of 5, constant and sharp. Patient states that she was seen at the emergency room, told she had a kidney infection, she was placed on antibiotics. She was having similar pain, seen by her primary care provider, Dr. Bland, who placed her on the ciprofloxacin and she finished her last dose this morning. She states they did do x-rays at the office which was negative. Does endorse some nausea, denies any vomiting or diarrhea. Denies any dysuria. Denies any abdominal pain. I have greeted and performed a rapid initial assessment of this patient. A comprehensive ED assessment and evaluation of the patient, analysis of test results and completion of the medical decision making process will be conducted by additional ED providers. PHYSICAL EXAMINATION: GENERAL: Well-appearing, well-nourished and in no acute distress. CV: s1, s2 regular LUNGS: No respiratory distress abd: R CVA tenderness appreciated, no L CVA tenderness appreciated. Musculoskeletal: Normal range of motion NEUROLOGICAL: Normal speech, normal gait. SKIN: Warm, Dry, normal turgor, no rashes or lesions noted. The patient was evaluated during a global COVID-19 pandemic and that diagnosis was suspected/considered upon their initial presentation. Their evaluation, treatment and testing was consistent with current guidelines for patients who present with complaints or symptoms and may be related to COVID-19. - Related Data Allergies/Adverse Reactions: NSAIDS (Non-Steroidal Anti-Inflamma Adverse Reaction (Verified 06/15/20 14:23) Past Medical History Renal/ Medical History: Reports: Hx Ovarian Cysts. Denies: Hx Peritoneal Dialysis GI Medical History: Reports: Hx Gastroesophageal Reflux Disease Musculoskeltal Medical History: Reports Hx Musculoskeletal Trauma Past Surgical History: Reports: Hx Gynecologic Surgery - Immunizations Hx Diphtheria, Pertussis, Tetanus Vaccination: Yes Physical Exam - Vital signs Vitals: Temp Pulse Resp BP Pulse Ox 98.3 F 89 18 139/95 H 99 07/02/20 15:41 07/02/20 15:41 07/02/20 15:41 07/02/20 15:41 07/02/20 15:41 Course - Vital Signs Vital signs: Temp Pulse Resp BP Pulse Ox 98.3 F 89 18 139/95 H 99 07/02/20 15:41 07/02/20 15:41 07/02/20 15:41 07/02/20 15:41 07/02/20 15:41 Doctor's Discharge - Discharge Referrals: LEWIS MCGINNIS DO [Primary Care Provider] - Follow up as needed
[2020-07-02 16:46] LABS: ABSOLUTE BASOPHILS # (AUTO) 0.1 10^3/uL (0.0-0.2); ABSOLUTE EOSINOPHILS # (AUTO) 0.1 10^3/uL (0.0-0.6); ABSOLUTE MONOCYTES (AUTO) 0.7 10^3/uL (0.1-1.4); ABSOLUTE NEUT (AUTO) 8.8 10^3/uL (1.7-8.2); BASOPHILS % (AUTO) 0.5 % (0-2); HEMATOCRIT 32.7 % (36.0-47.0); LYMPHOCYTES % (AUTO) 16.9 % (13-45); MEAN CORPUSCULAR HEMOGLOBIN 19.9 pg (27.0-33.4); MEAN CORPUSCULAR HGB CONC 30.6 g/dL (32.0-36.0); MEAN CORPUSCULAR VOLUME 65 fl (80-97); PLATELET COUNT 262 10^3/uL (150-450); RED BLOOD COUNT 5.02 10^6/uL (3.72-5.28); RED CELL DISTRIBUTION WIDTH 18.9 % (11.5-14.0); SEGMENTED NEUTROPHILS % (AUTO) 75.6 % (42-78); TOTAL CELLS COUNTED % (AUTO) 100 %; WHITE BLOOD COUNT 11.7 10^3/uL (4.0-10.5)
[2020-07-02 17:05] LABS: ALBUMIN 3.8 g/dL (3.5-5.0); ALKALINE PHOSPHATASE 100 U/L (38-126); ANION GAP 6 (5-19); ASPARTATE AMINO TRANSFERASE 22 U/L (14-36); BILIRUBIN,DIRECT 0.2 mg/dL (0.0-0.4); BILIRUBIN,TOTAL 0.3 mg/dL (0.2-1.3); BLOOD UREA NITROGEN 10 mg/dL (7-20); CALCIUM 9.5 mg/dL (8.4-10.2); CARBON DIOXIDE 28 mmol/L (22-30); CHLORIDE 103 mmol/L (98-107); GLUCOSE 105 mg/dL (75-110); POTASSIUM 3.9 mmol/L (3.6-5.0)
[2020-07-02 17:15] LABS: APPEARANCE,URINE CLOUDY; BILIRUBIN,URINE NEGATIVE (NEGATIVE); COLOR,URINE YELLOW; GLUCOSE, URINE NEGATIVE (NEGATIVE); KETONES,URINE NEGATIVE (NEGATIVE); PROTEIN,URINE 100 mg/dL (NEGATIVE); URINE SPECIFIC GRAVITY 1.036; UROBILINOGEN,URINE NEGATIVE mg/dL (<2.0)
--- NOTE | 2020-07-02 18:31 | RADIOLOGY REPORT (SQ) ---
EXAM DESCRIPTION: U/S RETROPERITON (RENAL/AORTA) IMAGES COMPLETED DATE/TIME: 07/02/2020 5:46 pm REASON FOR STUDY: R flank pain COMPARISON: None. TECHNIQUE: Dynamic and static grayscale images acquired of the kidneys and bladder and recorded on P ACS. Additional selected color Doppler and spectral images recorded. LIMITATIONS: None. FINDINGS: RIGHT KIDNEY: Normal size, 10.9 cm. No hydronephrosis. There are multiple echogenic area s suggestive of stones. LEFT KIDNEY: Normal size, 11.3 cm. No hydronephrosis. There are multiple echogenic areas suggestiv e of stones. BLADDER: Incompletely filled but no masses are seen. Ureteral jets are not seen. OTHER FINDINGS: No other significant finding. IMPRESSION: There appear to be intrarenal calculi. There is no hydronephrosis. TECHNICAL DOCUMENTATION: JOB ID: [id number] 2010 [employer]- All Rights Reserved Reading location - IP/workstation name: [email or web address]
[2020-07-02 20:22] VITALS: BP 151/90
--- NOTE | 2020-07-02 20:56 | ER Document Report ---
ED General - General Chief Complaint: Flank Pain Stated Complaint: FLANK PAIN, ABDOMINAL PAIN Time Seen by Provider: 07/02/20 15:53 Primary Care Provider: LEWIS MCGINNIS DO [Primary Care Provider] - Follow up in 3-5 days Notes: Patient is a 44-year-old female who comes emergency department for chief complaint of right mid to lower back pain for the past 3 weeks approximately. She states that she thought she pulled her back getting out of the bathtub 2 months ago, has been going to the chiropractor, was seen and placed on 10 days of ciprofloxacin and finished her last dose this morning, states that she feels improved but the symptoms have not resolved. She denies vomiting but reports occasional vague nausea. She denies fever/chills, dysuria, abdominal pain, focal numbness or weakness, radiating pain into her buttocks or legs. She denies history of IV drug abuse. TRAVEL OUTSIDE OF THE [place] IN LAST 30 DAYS: No - Related Data Allergies/Adverse Reactions: NSAIDS (Non-Steroidal Anti-Inflamma Adverse Reaction (Verified 07/02/20 20:15) Past Medical History - General Information source: Patient - Social History Smoking Status: Never Smoker Frequency of alcohol use: None Drug Abuse: None Lives with: Family Family History: Reviewed & Not Pertinent Patient has homicidal ideation: No Renal/ Medical History: Reports: Hx Ovarian Cysts. Denies: Hx Peritoneal Dialysis GI Medical History: Reports: Hx Gastroesophageal Reflux Disease Musculoskeletal Medical History: Reports Hx Musculoskeletal Trauma Past Surgical History: Reports: Hx Gynecologic Surgery - Oophorectomy secondary to large ovarian cyst, patient unsure which ovary - Immunizations Hx Diphtheria, Pertussis, Tetanus Vaccination: Yes Review of Systems - Review of Systems Constitutional: No symptoms reported EENT: No symptoms reported Cardiovascular: No symptoms reported Respiratory: No symptoms reported Gastrointestinal: See HPI Genitourinary: See HPI Female Genitourinary: No symptoms reported Musculoskeletal: See HPI Skin: No symptoms reported Hematologic/Lymphatic: No symptoms reported Neurological/Psychological: No symptoms reported Physical Exam - Vital signs Vitals: Temp Pulse Resp BP Pulse Ox 98.3 F 89 18 139/95 H 99 07/02/20 15:41 07/02/20 15:41 07/02/20 15:41 07/02/20 15:41 07/02/20 15:41 - Notes Notes: GENERAL: Alert, interacts well. No acute distress. HEAD: Normocephalic, atraumatic. EYES: Pupils equal, round, and reactive to light. Extraocular movements intact. ENT: Oral mucosa moist, tongue midline. Oropharynx unremarkable. Airway patent. LUNGS: Clear to auscultation bilaterally, no wheezes, rales, or rhonchi. No respiratory distress. Non-tender chest wall. HEART: Regular rate and rhythm. No murmur ABDOMEN: Soft, non-tender. Non-distended. Bowel sounds present in all 4 quadrants. No guarding or rigidity GENITOURINARY: Deferred EXTREMITIES: Moves all 4 extremities spontaneously. No edema, normal radial and dorsalis pedis pulses bilaterally. No cyanosis. BACK: Non-tender back generally on palpation. No midline tenderness, no saddle anesthesia, no signs of trauma. Normal upper and lower extremity range of motion , normal strength, normal distal neurovascular exam. NEUROLOGICAL: Alert and oriented x3. Normal speech. Cranial nerves II through XII grossly intact. Strength 5/5 in all extremities. PSYCH: Normal affect, normal mood. SKIN: Warm, dry, normal turgor. No rashes or lesions noted. Course - Re-evaluation Re-evalutation: Patient is smiling and well-appearing. Abdomen is soft and benign. I do not note any CVA tenderness or any abnormality with the back. Negative straight leg raise, no pain with position changes, not overtly musculoskeletal source. Vital signs unremarkable. CBC shows mild leukocytosis with elevation of neutrophils, chemistry unremarkable, urinalysis appears infected but is contaminated. Patient already completed Cipro for 10-day course. Ultrasound from triage shows no acute findings, does show some kidney stones without hydronephrosis. Patient agreed to catheterized urine sample to clarify clinical picture but declined the CAT scan. Catheterized urine sample again shows infection, patient will be treated for this. Again I recommended a CAT scan to see if patient has infected ureterolithiasis but patient declined. She states she does not feel like she is passing a kidney stone, I do agree that she does not present like this and I do have a lower suspicion of this. Patient is requesting discharge, antibiotics, and she states she will return if she develops fever, developing pain, vomiting, or any other worsening symptoms. Stable and well-appearing at time of discharge. - Vital Signs Vital signs: Temp Pulse Resp BP Pulse Ox 98.7 F 80 18 151/90 H 100 07/02/20 19:49 07/02/20 19:49 07/02/20 19:49 07/02/20 19:49 07/02/20 19:49 - Laboratory Results Result Diagrams: 07/02/20 16:10 07/02/20 16:10 Laboratory Results Interpreted: 07/02/20 07/02/20 07/02/20 16:10 16:10 16:10 WBC 11.7 H Hgb 10.0 L Hct 32.7 L MCV 65 L MCH 19.9 L MCHC 30.6 L RDW 18.9 H Absolute Neuts (auto) 8.8 H Sodium 136.6 L Urine Protein 100 H Urine Blood Ur Leukocyte Esterase Leukocyte Esterase Rfl LARGE H 07/02/20 20:56 WBC Hgb Hct MCV MCH MCHC RDW Absolute Neuts (auto) Sodium Urine Protein 30 H Urine Blood LARGE H Ur Leukocyte Esterase LARGE H Leukocyte Esterase Rfl Critical Laboratory Results Reviewed: No Critical Results - Radiology Results Critical Radiology Results Reviewed: No Critical Results Discharge - Discharge Clinical Impression: Right flank pain Urinary tract infection Qualifiers: Urinary tract infection type: site unspecified Hematuria presence: with hematuria Qualified Code(s): N39.0 - Urinary tract infection, site not specified Condition: Stable Disposition: HOME, SELF-CARE Instructions: Oral Narcotic Medication ([facility]) Additional Instructions: You do have a urinary tract infection, probably a kidney infection based on your flank pain. The ultrasound shows small kidney stones. I cannot completely rule out that your passing a kidney stone although you did not have any swelling on your kidneys. Recommendation is to take the antibiotics as prescribed, drink plenty of fluids, close follow-up closely with your provider. You can take Tylenol along with the prescribed Toradol if needed for pain, you can take Pepcid/famotidine as well as we discussed. Return if you worsen including severe worsening pain, abdominal pain, vomiting, fever, or any other concerning symptoms. Prescriptions: Ketorolac Tromethamine [Toradol 10 mg Tablet] 10 mg PO Q8HP PRN #24 tablet PRN Reason: Cephalexin Monohydrate [Keflex 500 mg Capsule] 500 mg PO QID 10 Days #40 capsule Forms: Return to Work Referrals: LEWIS MCGINNIS DO [Primary Care Provider] - Follow up in 3-5 days
[2020-07-02 21:27] LABS: APPEARANCE,URINE SLIGHTLY-CLOUDY; BILIRUBIN,URINE NEGATIVE (NEGATIVE); COLOR,URINE YELLOW; GLUCOSE, URINE NEGATIVE (NEGATIVE); KETONES,URINE NEGATIVE (NEGATIVE); LEUKOCYTE ESTERASE,URINE LARGE (NEGATIVE); NITRITE,URINE NEGATIVE (NEGATIVE); PROTEIN,URINE 30 mg/dL (NEGATIVE); URINE SPECIFIC GRAVITY 1.029; UROBILINOGEN,URINE NEGATIVE mg/dL (<2.0)
[2020-07-02] MEDS ORDERED: HYDROCODONE/ACETAMINOPHEN 5-325 MG (6 TAB/ER DISP) PO PRN (21:35)
[2020-07-02] MEDS ORDERED: LIDOCAINE 1% INJ-PF (10 MG/ML) 30 ML SDV INJ ONE (21:35)
[2020-07-02] MEDS ORDERED: CEFTRIAXONE INJ 1000 MG VIAL IM ONE (21:35)
== END 2020-07-02 22:19 | disposition home or self-care (01) ==
LOC: ER 15:30
DX: N39.0 Urinary tract infection, site not specified (principal); R11.0 Nausea; R10.9 Unspecified abdominal pain; M54.5 Low back pain; Z87.442 Personal history of urinary calculi
CPT/HCPCS: 99285; 96372; 36415; 87086; 83690; 85025; 80053; 81001; 76770; J3490; J0696